=== PATIENT | female | born 1985 | race African-American/Black ===

== ENCOUNTER 2020-03-29 12:43 | Emergency (ER) | payer SELFPAY ==
[~2020-03-29] VITALS: Ht 162.6 cm; Wt 100.2 kg
[2020-03-29] MEDS ORDERED: diphenhydrAMINE HCL 50 MG/ML VIAL ONE (12:53)
[2020-03-29] MEDS ORDERED: methylPREDNISolone SOD SUCC 125 MG/2ML VIAL ONE (12:53)
--- NOTE | 2020-03-29 12:56 | NUR ---
AT BEDSIDE FOR EVAL.
[2020-03-29 12:57] VITALS: BP 131/80
[2020-03-29] MEDS ORDERED: diphenhydrAMINE HCL 50 MG/ML VIAL IV ONE (13:00)
[2020-03-29] MEDS ORDERED: methylPREDNISolone SOD SUCC 125 MG/2ML VIAL IV ONE (13:00)
--- NOTE | 2020-03-29 13:02 | NUR ---
CHARLIE JARRETT AT BEDSIDE FOR EKG.
--- NOTE | 2020-03-29 13:38 | NUR ---
IV removed. Catheter intact and site benign. Pressure and 4x4 applied to site. No bleeding noted. Patient discharged to home in stable condition. Written and verbal after care instructions given. Patient verbalizes understanding of instruction.
== END 2020-03-29 13:46 | disposition home or self-care (01) ==
LOC: ER 12:46
DX: L23.2 Allergic contact dermatitis due to cosmetics (principal); R94.31 Abnormal electrocardiogram [ECG] [EKG]
CPT/HCPCS: 93005; 96374; 96375; 99284; J1200; J2930

== ENCOUNTER 2025-06-07 16:20 | Emergency (ER) | payer BC, OTHER ==
[~2025-06-07] VITALS: Ht 165.1 cm; Wt 90.7 kg
[2025-06-07] MEDS ORDERED: LIDOCAINE 1% INJ 50 ML MDV IJ ONE (17:14)
[2025-06-07] MEDS: BACI/NEOM/POLY B OINT PKT 1 UDPKT PACKET TP ONE (17:22)
[2025-06-07] MEDS: LIDOCAINE HCL/PF 1% 30 ML VIAL TP ONE (17:22)
[2025-06-07] MEDS ORDERED: TDAP [DIPH/PERTUSSIS/TET] 0.5 ML VIAL IM ONE (17:24)
[2025-06-07] MEDS ORDERED: BACI/NEOM/POLY B OINT PKT 1 UDPKT PACKET ONE (17:24)
[2025-06-07] MEDS ORDERED: IV NS 0.9% 1,000 ML BAG IV ONE (17:30)
[2025-06-07] MEDS: TDAP [DIPH/PERTUSSIS/TET] 0.5 ML VIAL IM ONE (17:36)
[2025-06-07] MEDS ORDERED: IBUP-1490 PO (17:43)
[2025-06-07 18:41] VITALS: BP 130/90; TEMP 98.4; O2SAT 98
== END 2025-06-07 18:41 | disposition home or self-care (01) ==
LOC: ER 16:29
DX: S61.012A Laceration without foreign body of left thumb without damage to nail, initial encounter (principal); W27.8XXA Contact with other nonpowered hand tool, initial encounter; Y93.89 Activity, other specified; Y92.89 Other specified places as the place of occurrence of the external cause; Y99.8 Other external cause status
CPT/HCPCS: 12001; 90471; 90715; 99283; A6403; J3490

== ENCOUNTER 2025-06-08 14:18 | Emergency (ER) | payer OTHER ==
[~2025-06-08] VITALS: Ht 165.1 cm; Wt 89.8 kg
[~2025-06-08 14:18] MED LIST: IBUP-1490 PO
[2025-06-08 14:42] VITALS: BP 122/75; TEMP 98.1
[2025-06-08 15:12] VITALS: O2SAT 98
== END 2025-06-08 15:13 | disposition home or self-care (01) ==
LOC: ER 14:31
DX: S61.012D Laceration without foreign body of left thumb without damage to nail, subsequent encounter (principal); F41.9 Anxiety disorder, unspecified; Z48.00 Encounter for change or removal of nonsurgical wound dressing; X58.XXXD Exposure to other specified factors, subsequent encounter